=== PATIENT | female | born 1945 | race African-American/Black ===

== ENCOUNTER 2018-03-21 09:30 | Emergency (ER) | payer MEDICARE, MEDICAID ==
[~2018-03-21] VITALS: Ht 167.6 cm; Wt 82.7 kg
[~2018-03-21 09:30] MED LIST: ATEN50TA PO; GABA-529 PO; HYDR25TA PO; LANTUS SQ; METF500T6 PO; SIMV20TA6 PO
[2018-03-21 12:56] VITALS: BP 145/77
== END 2018-03-21 13:00 | disposition left against medical advice (07) ==
LOC: ER 12:40
DX: Z53.21 Procedure and treatment not carried out due to patient leaving prior to being seen by health care provider (principal); M54.2 Cervicalgia; M54.9 Dorsalgia, unspecified; M25.519 Pain in unspecified shoulder; I10 Essential (primary) hypertension; E11.9 Type 2 diabetes mellitus without complications; Z94.7 Corneal transplant status; Z90.49 Acquired absence of other specified parts of digestive tract; Z90.710 Acquired absence of both cervix and uterus; Z96.649 Presence of unspecified artificial hip joint
CPT/HCPCS: 93005; 99281; 99283